=== PATIENT | male | born 1990 | race Native Hawaiian/Other Pacific Islander ===

== ENCOUNTER 2016-07-10 23:15 | Emergency (ER) | payer OTHER ==
[~2016-07-10] VITALS: Ht 180.3 cm; Wt 72.6 kg
[2016-07-11 00:10] LABS: PLATELET COUNT 281 K/uL (142-355)
[2016-07-11 00:27] LABS: POTASSIUM 3.4 mmol/L (3.6-5.2); SODIUM 138 mmol/L (136-145)
[2016-07-11 00:58] VITALS: BP 141/83; TEMP 98.3
== END 2016-07-11 00:35 | disposition left against medical advice (07) ==
LOC: ED 23:15
DX: R07.89 Other chest pain (principal)
CPT/HCPCS: 36415; 80053; 80320; 82550; 82553; 84484; 85027; 86318; 93005; 96360; 99284

== ENCOUNTER 2022-05-02 14:23 | Emergency (ER) | payer OTHER ==
[~2022-05-02] VITALS: Ht 175.3 cm; Wt 74.8 kg
[2022-05-02 14:45] LABS: PLATELET COUNT 273 K/uL (142-355)
[2022-05-02 14:55] LABS: POTASSIUM 3.3 mmol/L (3.6-5.2)
== END 2022-05-02 17:10 | disposition home or self-care (01) ==
LOC: ED 14:23
PROVIDERS: Emergency Medicine Emergency Medical Services
DX: T40.411A Poisoning by fentanyl or fentanyl analogs, accidental (unintentional), initial encounter (principal); R40.4 Transient alteration of awareness; X58.XXXA Exposure to other specified factors, initial encounter; Y92.89 Other specified places as the place of occurrence of the external cause
CPT/HCPCS: 80053; 83735; 84484; 85027; 93005; 96360; 96361; 99284

== ENCOUNTER 2022-06-23 22:43 | Emergency (ER) | payer OTHER ==
[~2022-06-23] VITALS: Ht 175.3 cm; Wt 68.0 kg
[2022-06-24 00:04] LABS: PLATELET COUNT 298 K/uL (142-355)
[2022-06-24 00:08] LABS: POTASSIUM 4.4 mmol/L (3.6-5.2)
[2022-06-24] MEDS ORDERED: BUPRENORPHINE H1 MI2 PO (05:03)
[2022-06-24 06:56] LABS: PLATELET COUNT 281 K/uL (142-355)
[2022-06-26 19:00] VITALS: BP 123/70; TEMP 97.6
== END 2022-06-27 15:08 | disposition still patient (30) ==
LOC: ED 22:43
PROVIDERS: Emergency Medicine
DX: R45.851 Suicidal ideations (principal); F19.10 Other psychoactive substance abuse, uncomplicated; F17.210 Nicotine dependence, cigarettes, uncomplicated
CPT/HCPCS: 80053; 80143; 80179; 80307; 80320; 85027; 87635; 99285; Q0177; U0003